=== PATIENT | female | born 1995 | race Caucasian/White ===

== ENCOUNTER 2019-02-01 19:48 | Emergency (ER) | payer MEDICAID ==
[~2019-02-01] VITALS: Ht 152.4 cm; Wt 47.6 kg
[2019-02-01 20:10] VITALS: BP_SYST 114
[2019-02-01] MEDS ORDERED: ACETAMINOPHEN 500 MG TABLET PO ONE (20:30)
[2019-02-01] MEDS ORDERED: NITROFURANTOIN MONOHYD/M-CRYST 100 MG CAPSULE PO ONE (20:30)
[2019-02-01 20:36] LABS: BILIRUBIN,URINE NEGATIVE (NEGATIVE); BLOOD, URINE NEGATIVE (NEGATIVE); CLARITY/URINE CLOUDY (CLEAR); COLOR,URINE YELLOW (YELLOW); GLUCOSE,URINE NEGATIVE (NEGATIVE); KETONES,URINE NEGATIVE (NEGATIVE); LEUKOCYTE ESTERASE ,URINE NEGATIVE (NEGATIVE); NITRITE, URINE POSITIVE (NEGATIVE); PROTEIN URINE NEGATIVE (NEGATIVE); UROBILINOGEN,URINE 0.2 (0.2-1.0)
[2019-02-01 20:39] LABS: HCG,QUAL RESULT POSITIVE (NEGATIVE)
[2019-02-01 20:41] LABS: BACTERIA,URINE MANY /HPF (None Seen); RBC,URINE 0-3 /HPF (0-3); WBC,URINE 0-3 /HPF (0-3)
[2019-02-01 20:42] LABS: URINE AMORPHOUS URATE 3+ /HPF (None Seen)
[2019-02-01 21:13] VITALS: BP_SYST 112
== END 2019-02-01 21:13 | disposition home or self-care (01) ==
LOC: SED 19:48
DX: O23.41 Unspecified infection of urinary tract in pregnancy, first trimester (principal); O98.311 Other infections with a predominantly sexual mode of transmission complicating pregnancy, first trimester; Z11.3 Encounter for screening for infections with a predominantly sexual mode of transmission; Z3A.01 Less than 8 weeks gestation of pregnancy; Z87.891 Personal history of nicotine dependence
CPT/HCPCS: 81000-TC; 81025; 84703; 87086; 87186-TC; 87491; 87591; 99283